=== PATIENT | female | born 1960 | race African-American/Black ===

== ENCOUNTER 2022-04-08 02:54 | Inpatient (IN) | payer MEDICARE, OTHER ==
[~2022-04-08] VITALS: Ht 162.6 cm; Wt 73.9 kg
[2022-04-08] MEDS ORDERED: ACETAMINOPHEN 325 MG TABLET PO PRN (04:00)
[2022-04-08] MEDS ORDERED: MELATONIN 3 MG TABLET PO SCH (04:00)
[2022-04-08] MEDS ORDERED: MAGNESIUM HYDROXIDE 30 ML LIQUID UDC PO PRN (04:00)
[2022-04-08] MEDS ORDERED: ONDANSETRON 4 MG/2 ML VIAL IV PRN (04:00)
[2022-04-08 04:20] VITALS: BP 129/80
[2022-04-08] MEDS ORDERED: PIPERACILLIN/TAZOBACTAM/D5W 50 ML IV ONE (05:16)
[2022-04-08] MEDS ORDERED: PIPERACILLIN SODIUM/TAZOBACTAM 3.375 G in IV DEXTROSE 5% 50 ML IV ONE (05:30)
[2022-04-08] MEDS ORDERED: PIPERACILLIN SODIUM/TAZOBACTAM 3.375 G in IV DEXTROSE 5% 50 ML IV SCH (06:00)
[2022-04-08 06:13] LABS: *BILIRUBIN,URIN NEGATIVE (NEGATIVE); *BLOOD, URINE NEGATIVE (NEGATIVE); *CLARITY,URINE CLEAR (CLEAR); *COLOR,URINE YELLOW (YELLOW); *KETONES,URINE 2+ (NEGATIVE); LEUKOCYTE ESTERASE ,URINE NEGATIVE (NEGATIVE); NITRITE, URINE NEGATIVE (NEGATIVE); PH,URINE 7.5 (5.0-8.0); UGLUCOSE NEGATIVE (NEGATIVE)
[2022-04-08] MEDS: IV D5/ 0.9% NACL 1,000 ML IV PRN (06:16)
[2022-04-08 06:20] LABS: HEMATOCRIT 38.2 % (31.2-41.9); MEAN CORPUSCULAR HEMOGLOBIN 29.3 uug (24.7-32.8); MEAN CORPUSCULAR VOLUME 89.9 fL (75.5-95.3); PLATELET COUNT (AUTO) 189 K/uL (179-408)
[2022-04-08 06:29] LABS: MAGNESIUM 2.1 mg/dL (1.8-2.4); PHOSPHOROUS 2.7 mg/dL (2.5-4.9)
[2022-04-08 06:41] LABS: CREATININE 0.8 mg/dL (0.6-1.3); POTASSIUM 3.8 mmol/L (3.5-5.1)
[2022-04-08] MEDS ORDERED: MORPHINE SULFATE 10 MG/1 ML DISP.SYRIN IV PRN (07:15)
[2022-04-08] MEDS ORDERED: MORPHINE SULFATE 4 MG/1 ML DISP.SYRIN IV PRN (07:15)
[2022-04-08] MEDS ORDERED: MORPHINE SULFATE 2 MG/1 ML DISP.SYRIN IV PRN (07:15)
[2022-04-08 09:25] VITALS: BP 135/85
[2022-04-08] MEDS ORDERED: AMLO-212 PO (09:25)
[2022-04-08] MEDS: DOCUSATE SODIUM 100 MG CAPSULE PO SCH ×2 (09:30→21:00)
[2022-04-08] MEDS ORDERED: DIATR MEGLU/DIATRIZOATE SODIUM 30 ML BOTTLE ONE (14:01)
[2022-04-08] MEDS: PIPERACILLIN SODIUM/TAZOBACTAM 3.375 G in IV DEXTROSE 5% 100 ML IV SCH ×2 (14:18→22:30)
[2022-04-08 16:47] VITALS: BP 141/85
[2022-04-09] MEDS: PIPERACILLIN SODIUM/TAZOBACTAM 3.375 G in IV DEXTROSE 5% 100 ML IV SCH ×2 (06:23→14:36)
[2022-04-09 08:21] VITALS: BP 134/76
[2022-04-09] MEDS: DOCUSATE SODIUM 100 MG CAPSULE PO SCH ×2 (10:19→20:46)
[2022-04-09] MEDS ORDERED: MORPHINE SULFATE 4 MG/1 ML DISP.SYRIN IV PRN (10:45)
[2022-04-09] MEDS: IV D5/ 0.9% NACL 1,000 ML IV PRN (10:48)
[2022-04-09 15:12] VITALS: BP 138/82
[2022-04-09 15:41] LABS: HEMATOCRIT 34.7 % (31.2-41.9); MEAN CORPUSCULAR HEMOGLOBIN 29.9 uug (24.7-32.8); MEAN CORPUSCULAR VOLUME 89.7 fL (75.5-95.3); PLATELET COUNT (AUTO) 151 K/uL (179-408)
[2022-04-09 15:49] LABS: BAND % (MANUAL) 2 % (0-10); EOSINOPHILS % (MANUAL) 2 % (0-8); LYMPHOCYTES % (MANUAL) 20 % (20-40); MONOCYTES % (MANUAL) 12 % (2-10)
[2022-04-09 15:50] LABS: NEUTROPHILS % (MANUAL) 64 % (42-75)
[2022-04-09 15:56] LABS: CREATININE 0.9 mg/dL (0.6-1.3); MAGNESIUM 2.1 mg/dL (1.8-2.4); PHOSPHOROUS 3.6 mg/dL (2.5-4.9); POTASSIUM 4.4 mmol/L (3.5-5.1)
[2022-04-09 20:00] VITALS: BP 117/75
[2022-04-10] MEDS: PIPERACILLIN SODIUM/TAZOBACTAM 3.375 G in IV DEXTROSE 5% 100 ML IV SCH ×2 (00:36→05:22)
[2022-04-10 06:21] VITALS: BP 121/75
[2022-04-10 07:15] LABS: HEMATOCRIT 33.7 % (31.2-41.9); MEAN CORPUSCULAR HEMOGLOBIN 29.6 uug (24.7-32.8); MEAN CORPUSCULAR VOLUME 88.9 fL (75.5-95.3); PLATELET COUNT (AUTO) 162 K/uL (179-408)
[2022-04-10 07:26] LABS: CREATININE 0.8 mg/dL (0.6-1.3); MAGNESIUM 2.1 mg/dL (1.8-2.4); PHOSPHOROUS 3.4 mg/dL (2.5-4.9); POTASSIUM 3.4 mmol/L (3.5-5.1)
[2022-04-10 08:04] LABS: NEUTROPHILS % (MANUAL) 0 % (42-75)
[2022-04-10] MEDS: DOCUSATE SODIUM 100 MG CAPSULE PO SCH (09:11)
[2022-04-10] MEDS ORDERED: POTASSIUM CHLORIDE 20 MEQ POWDER PACKET PO ONE (09:15)
[2022-04-10 12:00] VITALS: BP 121/80
[2022-04-10] MEDS ORDERED: CIPR-262 PO (15:24)
[2022-04-10] MEDS ORDERED: ACET325T53 PO (15:24)
[2022-04-10] MEDS ORDERED: DOCU-141 PO (15:24)
== END 2022-04-10 15:35 | disposition home or self-care (01) | DRG 389 ==
LOC: MEDSURG3 03:52 → MED 04-09 07:49
PROVIDERS: ADMIT Internal Medicine; ATTEND Internal Medicine
DX: K56.609 Unspecified intestinal obstruction, unspecified as to partial versus complete obstruction (principal); N39.0 Urinary tract infection, site not specified; I10 Essential (primary) hypertension; E78.5 Hyperlipidemia, unspecified; V89.2XXS Person injured in unspecified motor-vehicle accident, traffic, sequela; Z98.890 Other specified postprocedural states
CPT/HCPCS: 36415; 70030-TC; 71045; 74250; 83550; 83605; 83735; 84100; 84484; 85025; 85730; 87040; A4663; G0378; J2270; J2543; J7070; Q9963

== ENCOUNTER 2024-06-25 14:51 | Emergency (ER) | payer MEDICARE, OTHER ==
[~2024-06-25] VITALS: Ht 162.6 cm; Wt 76.7 kg
[~2024-06-25 14:51] MED LIST: ACET325T53 PO; AMLO-212 PO; CIPR-262 PO; DOCU-141 PO
[2024-06-25 14:57] VITALS: O2SAT 100
[2024-06-25 15:42] LABS: *BILIRUBIN,URIN NEGATIVE (NEGATIVE); *BLOOD, URINE NEGATIVE (NEGATIVE); *CLARITY,URINE CLEAR (CLEAR); *COLOR,URINE YELLOW (YELLOW); *KETONES,URINE NEGATIVE (NEGATIVE); *PROTEIN,URINE NEGATIVE (NEGATIVE); LEUKOCYTE ESTERASE ,URINE 1+ (NEGATIVE); NITRITE, URINE NEGATIVE (NEGATIVE); PH,URINE 5.5 (5.0-8.0); UGLUCOSE NEGATIVE (NEGATIVE)
[2024-06-25 15:50] LABS: BACTERIA,URINE FEW /HPF (NONE SEEN); RBC,URINE 0-3 /HPF (0-3); SQUAMOUS EPITHELIAL CELL,UR FEW /HPF (NONE SEEN)
[2024-06-25] MEDS ORDERED: SULF1TAB48 PO (16:04)
== END 2024-06-25 16:10 | disposition home or self-care (01) ==
LOC: ER 14:55
DX: N30.90 Cystitis, unspecified without hematuria (principal); I10 Essential (primary) hypertension; Z88.5 Allergy status to narcotic agent; Z87.19 Personal history of other diseases of the digestive system
CPT/HCPCS: 87086; A4606; A4663

== ENCOUNTER 2024-08-25 14:27 | Emergency (ER) | payer MEDICARE, OTHER ==
[~2024-08-25] VITALS: Ht 162.6 cm; Wt 74.8 kg
[~2024-08-25 14:27] MED LIST changes: +SULF1TAB48 PO
[2024-08-25 15:45] LABS: *BILIRUBIN,URIN 1+ (NEGATIVE); *BLOOD, URINE NEGATIVE (NEGATIVE); *COLOR,URINE YELLOW (YELLOW); *KETONES,URINE TRACE (NEGATIVE); *PROTEIN,URINE TRACE (NEGATIVE); *UROBILINOGEN,URINE 0.2 E.U./dl (NORMAL); LEUKOCYTE ESTERASE ,URINE 1+ (NEGATIVE); NITRITE, URINE NEGATIVE (NEGATIVE); UGLUCOSE NEGATIVE (NEGATIVE)
[2024-08-25 15:48] LABS: *CLARITY,URINE SLIGHTLY CLOUDY (CLEAR)
[2024-08-25 15:55] LABS: BACTERIA,URINE FEW /HPF (NONE SEEN); RBC,URINE 0-3 /HPF (0-3); WBC,URINE 50-80 /HPF (0-3)
[2024-08-25 15:56] LABS: SQUAMOUS EPITHELIAL CELL,UR MODERATE /HPF (NONE SEEN)
[2024-08-25] MEDS ORDERED: LEVO500T90 PO (15:56)
[2024-08-25] MEDS ORDERED: levoFLOXacin 500 MG TABLET ONE (15:57)
[2024-08-25] MEDS: levoFLOXacin 500 MG TABLET PO ONE (15:58)
[2024-08-25 16:03] VITALS: BP 125/73; TEMP 98; O2SAT 99
== END 2024-08-25 16:04 | disposition home or self-care (01) ==
LOC: ER 14:27
DX: N39.0 Urinary tract infection, site not specified (principal); R03.0 Elevated blood-pressure reading, without diagnosis of hypertension; Z88.5 Allergy status to narcotic agent; Z87.19 Personal history of other diseases of the digestive system
CPT/HCPCS: 87086; A4606; A4663

== ENCOUNTER 2025-01-18 16:25 | Emergency (ER) | payer MEDICARE, OTHER ==
[~2025-01-18] VITALS: Ht 162.6 cm; Wt 68.0 kg
[~2025-01-18 16:25] MED LIST changes: +LEVO500T90 PO
[2025-01-18 16:41] VITALS: BP 136/75
[2025-01-18] MEDS ORDERED: SULF1TAB48 PO (16:52)
[2025-01-18 17:13] VITALS: BP 136/75; O2SAT 99
== END 2025-01-18 17:14 | disposition home or self-care (01) ==
LOC: ER 17:02
DX: N39.0 Urinary tract infection, site not specified (principal); Z87.440 Personal history of urinary (tract) infections; Z88.5 Allergy status to narcotic agent
CPT/HCPCS: A4606; A4663